=== PATIENT | female | born 1935 | race Caucasian/White ===

== ENCOUNTER 2017-03-21 10:27 | Emergency (ER) | payer MEDICARE, MEDICAID ==
--- NOTE | 2017-03-21 10:43 | ER Document Report ---
ED General - General Chief Complaint: Altered Mental Status Stated Complaint: ALTERED MENTAL STATUS Time Seen by Provider: 03/21/17 10:34 Notes: Is an 82-year-old female, past medical history dementia, prior CVAs, multiple UTIs, aortic aneurysm, from [facility] after she was difficult to arouse this morning. Her daughter is at bedside and said that she was interactive and talkative last night. No new medications were started and the patient does not have narcotics listed on her med list. TRAVEL OUTSIDE OF THE [place] IN LAST 30 DAYS: No - Related Data Allergies/Adverse Reactions: No Known Allergies Allergy (Verified 11/18/15 18:30) Past Medical History - General Information source: Relative - Daughter - Social History Smoking Status: Former Smoker Family History: Reviewed & Not Pertinent - Past Medical History Cardiac Medical History: Reports: Hx Hypertension Endocrine Medical History: Reports: Hx Diabetes Mellitus Type 1 - Immunizations Hx Diphtheria, Pertussis, Tetanus Vaccination: No Review of Systems - Review of Systems -: Yes ROS unobtainable due to patient's medical condition Physical Exam - Vital signs Vitals: Resp Pulse Ox 13 95 03/21/17 10:33 03/21/17 10:33 - Notes Notes: PHYSICAL EXAMINATION: GENERAL: Frail appearing. Alert and responds to voice. Does not open eyes. HEAD: Atraumatic, normocephalic. EYES: Pupils equal round and reactive to light, extraocular movements intact, sclera anicteric, conjunctiva are normal. ENT: nares patent, oropharynx clear without exudates. Moist mucous membranes. NECK: Normal range of motion, supple without lymphadenopathy LUNGS: Breath sounds clear to auscultation bilaterally and equal. No wheezes rales or rhonchi. HEART: Regular rate and rhythm without murmurs ABDOMEN: Soft, nontender, normoactive bowel sounds. No guarding, no rebound. No masses appreciated. EXTREMITIES: Normal range of motion, no pitting or edema. No cyanosis. NEUROLOGICAL: Squeezes hands when asked, will not open eyes, unable to test sensory SKIN: Warm, Dry, normal turgor, no rashes or lesions noted. Course - Re-evaluation Re-evalutation: 03/21/17 14:28 Pt is wide awake her mental status is back to baseline per her daughter at bedside. She has evidence of a UTI on her urinalysis. Looking through past sensitivities, her bacteria is sensitive to Macrobid. No evidence of sepsis. Will discharge to [place] with strict return precautions - Vital Signs Vital signs: Temp Pulse Resp BP Pulse Ox 14 126/77 H 96 03/21/17 11:01 03/21/17 11:01 03/21/17 11:01 - Laboratory Result Diagrams: 03/21/17 10:40 03/21/17 10:40 Laboratory results interpreted by me: 03/21/17 03/21/17 03/21/17 10:31 10:40 10:40 RDW 15.0 H Sodium 147.7 H Potassium 3.3 L Chloride 108 H Carbon Dioxide 31 H BUN 23 H Glucose 113 H POC Glucose 112 H Albumin 3.4 L Urine Protein Urine Nitrite Ur Leukocyte Esterase Urine Ascorbic Acid 03/21/17 12:41 RDW Sodium Potassium Chloride Carbon Dioxide BUN Glucose POC Glucose Albumin Urine Protein 30 H Urine Nitrite POSITIVE H Ur Leukocyte Esterase LARGE H Urine Ascorbic Acid 20 H Discharge - Discharge Clinical Impression: Urinary tract infection Qualifiers: Urinary tract infection type: acute cystitis Hematuria presence: without hematuria Qualified Code(s): N30.00 - Acute cystitis without hematuria Mental status change Qualifiers: Altered mental status type: transient alteration of awareness Qualified Code(s) : R40.4 - Transient alteration of awareness Condition: Stable Disposition: SNF Additional Instructions: URINARY TRACT INFECTION: Your evaluation indicates that you have a urinary tract infection. This is due to germs growing in the bladder. This is a common problem. This infection usually responds quickly to antibiotics. Your antibiotic should be taken exactly as prescribed. Drink plenty of fluids -- three to four quarts a day. Occasionally, a bladder anesthetic will be prescribed to help stop the feeling of urgency until the antibiotic has a chance to clear the infection. This may cause your urine to be dark orange. Certain urine infections require a culture. If the doctor obtained a culture, the results will be back in two days. You should call to see if a change in treatment is needed. A repeat urinalysis after you finish treatment is often recommended. The physician will let you know if further testing is required. Call the doctor if you develop fever, chills, flank pain, inability to urinate, or blood in the urine. ANTIBIOTIC THERAPY: You have been given an antibiotic prescription. It's important that you take all the medication, unless instructed otherwise by your physician. Failure to complete the entire course can result in relapse of your condition. Common side effects of antibiotics include nausea, intestinal cramping, or diarrhea. Women may develop vaginal yeast infections, and babies can get yeast (thrush) in the mouth following the use of antibiotics. Contact your physician if you develop significant side effects from this medication. Allergy to this antibiotic can result in hives, wheezing, faintness, or itching. If symptoms of allergy occur, stop the medication and call the doctor. NITROFURANTOIN (MACRODANTIN, MACROBID): You have received a prescription for nitrofurantoin (Macrodantin). This antibiotic is used for urinary tract infections. Women who are or nursing should notify the physician before taking this medicine. If you have ever had a problem caused by this medication in the past, be sure the physician is aware of it. Common side effects of this medicine include nausea, vomiting, or decreased appetite. Notify your physician if these side effects become severe. Immediately stop this medicine and call the physician if you develop cough , shortness of breath, chest pain, weakness, jaundice (yellow color of the skin and whites of the eyes), or a skin rash. FOLLOW-UP CARE: If you have been referred to a physician for follow-up care, call the physician s office for an appointment as you were instructed or within the next two days. If you experience worsening or a significant change in your symptoms, notify the physician immediately or return to the Emergency Department at any time for re-evaluation. Prescriptions: Nitrofurantoin/Nitrofuran Mac [Macrobid 100 mg Capsule] 1 tab PO BID #10 capsule Referrals: RACHEL HIGGINS MD [Primary Care Provider] - Follow up as needed
[2017-03-21 11:10] LABS: ABSOLUTE EOSINOPHILS # (AUTO) 0.2 10^3/uL (0.0-0.6); ABSOLUTE LYMPHOCYTES (AUTO) 1.8 10^3/uL (0.5-4.7); ABSOLUTE MONOCYTES (AUTO) 0.4 10^3/uL (0.1-1.4); ABSOLUTE NEUT (AUTO) 3.6 10^3/uL (1.7-8.2); BASOPHILS % (AUTO) 0.6 % (0-2); EOSINOPHILS % (AUTO) 2.9 % (0-6); HEMATOCRIT 38.2 % (36.0-47.0); HEMOGLOBIN 12.3 g/dL (12.0-15.5); HGB HCT DIFFERENCE -1.3; LYMPHOCYTES % (AUTO) 29.3 % (13-45); MEAN CORPUSCULAR HEMOGLOBIN 30.1 pg (27.0-33.4); MEAN CORPUSCULAR HGB CONC 32.4 g/dL (32.0-36.0); MEAN CORPUSCULAR VOLUME 93 fl (80-97); MONOCYTES % (AUTO) 6.5 % (3-13); SEGMENTED NEUTROPHILS % (AUTO) 60.7 % (42-78)
[2017-03-21 11:20] LABS: ALANINE AMINOTRANSFERASE 23 U/L (9-52); ALBUMIN 3.4 g/dL (3.5-5.0); ALKALINE PHOSPHATASE 81 U/L (38-126); ANION GAP 9 (5-19); ASPARTATE AMINO TRANSFERASE 28 U/L (14-36); BILIRUBIN,DIRECT 0.3 mg/dL (0.0-0.4); BILIRUBIN,TOTAL 0.5 mg/dL (0.2-1.3); BLOOD UREA NITROGEN 23 mg/dL (7-20); CALCIUM 8.7 mg/dL (8.4-10.2); CARBON DIOXIDE 31 mmol/L (22-30); CHLORIDE 108 mmol/L (98-107); CREATINE KINASE 31 U/L (30-135); CREATININE RESULT 0.59 mg/dL (0.52-1.25); GLUCOSE 113 mg/dL (75-110); LIPASE 32.8 U/L (23-300); POTASSIUM 3.3 mmol/L (3.6-5.0); SODIUM 147.7 mmol/L (137-145); TOTAL PROTEIN 7.6 g/dL (6.3-8.2)
[2017-03-21 11:22] LABS: ALCOHOL < 10 mg/dL (NONE DETECTED)
--- NOTE | 2017-03-21 11:32 | RADIOLOGY REPORT (SQ) ---
EXAM DESCRIPTION: CT HEAD WITHOUT COMPLETED DATE/TIME: 03/21/2017 11:21 am REASON FOR STUDY: AMS COMPARISON: 11/21/2015 TECHNIQUE: Axial images acquired through the brain without intravenous contrast. Images reviewed wi th bone, brain and subdural windows. Images stored on PACS. All CT scanners at this facility use dose modulation, iterative reconstruction, and/or weight based d osing when appropriate to reduce radiation dose to as low as reasonably achievable (ALARA). [facility]: Dose Right [facility]: CareDose [facility]: Dose Right [facility]: Teradose 4D [facility]: [employer] RADIATION DOSE: 64.61mGy. LIMITATIONS: None. FINDINGS: VENTRICLES: Prominent. CEREBRUM: No masses. No hemorrhage. No midline shift. Areas of low density in the white matter mos t likely due to chronic micro-vascular ischemic change. No evidence for acute infarction. CEREBELLUM: No masses. No hemorrhage. No alteration of density. No evidence for acute infarction. EXTRAAXIAL SPACES: Age-related involutional change. No fluid collections. No masses. ORBITS AND GLOBE: No intra- or extraconal masses. Normal contour of globe without masses. CALVARIUM: No fracture. PARANASAL SINUSES: Fluid left sphenoid, right ethmoid and maxillary sinuses. SOFT TISSUES: No mass or hematoma. OTHER: No other significant finding. IMPRESSION: CHRONIC CHANGES OF ATROPHY AND MICROVASCULAR ISCHEMIA. NO ACUTE PROCESS. TECHNICAL DOCUMENTATION: JOB ID: [id number] Quality ID # [id number]: Final reports with documentation of one or more dose reduction techniques (e.g., Au tomated exposure control, adjustment of the mA and/or kV according to patient size, use of iterative reconstruction technique) 2010 [employer]- All Rights Reserved
--- NOTE | 2017-03-21 11:48 | RADIOLOGY REPORT (SQ) ---
EXAM DESCRIPTION: CHEST SINGLE VIEW COMPLETED DATE/TIME: 03/21/2017 11:23 am REASON FOR STUDY: AMS COMPARISON: None. EXAM PARAMETERS: NUMBER OF VIEWS: One view. TECHNIQUE: Single frontal radiographic view of the chest acquired. RADIATION DOSE: NA LIMITATIONS: None. FINDINGS: LUNGS AND PLEURA: No opacities, masses or pneumothorax. No pleural effusion. MEDIASTINUM AND HILAR STRUCTURES: No masses. Contour normal. HEART AND VASCULAR STRUCTURES: Heart normal in size. Normal vasculature. BONES: No acute findings. HARDWARE: None in the chest. OTHER: No other significant finding. IMPRESSION: NO ACUTE RADIOGRAPHIC FINDING IN THE CHEST. TECHNICAL DOCUMENTATION: JOB ID: [id number]
[2017-03-21] MEDS ORDERED: POTASSIUM CHLORIDE 10 MEQ TABLET.SA PO ONE (12:33)
[2017-03-21 13:27] LABS: URINE BARBITURATES SCREEN NEGATIVE; URINE METHADONE SCREEN NEGATIVE; URINE OPIATES LOW NEGATIVE; URINE PHENCYCLIDINE SCREEN NEGATIVE
[2017-03-21 13:32] LABS: APPEARANCE,URINE CLOUDY; BILIRUBIN,URINE NEGATIVE (NEGATIVE); GLUCOSE, URINE NEGATIVE (NEGATIVE); KETONES,URINE NEGATIVE (NEGATIVE); LEUKOCYTE ESTERASE,URINE LARGE (NEGATIVE); NITRITE,URINE POSITIVE (NEGATIVE); PROTEIN,URINE 30 mg/dL (NEGATIVE); URINE SPECIFIC GRAVITY 1.013; UROBILINOGEN,URINE NEGATIVE mg/dL (<2.0)
[2017-03-21 13:33] LABS: BACTERIA,URINE 3+ /HPF; RBC,URINE NONE SEEN /HPF; WBC,URINE TOO NUMEROUS TO CNT /HPF
[2017-03-21] MEDS ORDERED: CEFTRIAXONE 1 GM/D5W RTU 50 ML IV ONE (14:23)
[2017-03-21 16:36] VITALS: BP 124/95
--- NOTE | 2017-03-22 11:02 | EKG REPORT ---
SEVERITY:- ABNORMAL ECG - SINUS RHYTHM LEFT AXIS DEVIATION LEFT VENTRICULAR HYPERTROPHY : Confirmed by: Shania Gan MD 22-Mar-2017 11:01:57
== END 2017-03-21 16:36 ==
LOC: ER 10:27
DX: N30.00 Acute cystitis without hematuria (principal); R40.4 Transient alteration of awareness; I10 Essential (primary) hypertension; E10.9 Type 1 diabetes mellitus without complications; Z86.73 Personal history of transient ischemic attack (TIA), and cerebral infarction without residual deficits; Z87.440 Personal history of urinary (tract) infections
CPT/HCPCS: 93005; 99285; 51701; 96365; 36415; 82962; 80307 ×2; 82550; 83690; 85025; 80053; 81001; 84484; 83605; 71010; 70450; 93010; A9270; J0696

== ENCOUNTER 2018-03-13 13:14 | Emergency (ER) | payer MEDICARE, MEDICAID ==
--- NOTE | 2018-03-13 13:23 | ER Document Report ---
ED General - General Stated Complaint: STROKE LIKE SYMPTOMS Time Seen by Provider: 03/13/18 13:22 Notes: 83-year-old female patient referred to the emergency department for evaluation from a [facility] for altered mental status. Apparently she was more weak today than normal. half-way staff or concerned she may be having a stroke. Patient has dementia. Denies any complaints at this time. Is able to answer questions appropriately based on her baseline mental status. half-way staff states that she was weak on both upper extremities. Patient is able to move both upper extremities without difficulty with equal derrick follower strength and no obvious pronator drift on initial bedside exam immediately on arrival. TRAVEL OUTSIDE OF THE [place] IN LAST 30 DAYS: No - HPI Onset/Duration: Better Severity: None Pain Level: 0 - Related Data Allergies/Adverse Reactions: No Known Allergies Allergy (Verified 03/13/18 13:48) Past Medical History - General Information source: Patient, [facility] Records Cannot obtain history due to: Dementia - Social History Smoking Status: Smoker,Current Status Unk Smoking Education Provided: No Frequency of alcohol use: None Drug Abuse: None Lives with: Group Home Family History: Reviewed & Not Pertinent - Past Medical History Cardiac Medical History: Reports: Hx Hypertension Endocrine Medical History: Reports: Hx Diabetes Mellitus Type 1 - Immunizations Hx Diphtheria, Pertussis, Tetanus Vaccination: No Review of Systems - Review of Systems Constitutional: No symptoms reported EENT: No symptoms reported Cardiovascular: No symptoms reported Respiratory: No symptoms reported Gastrointestinal: No symptoms reported Genitourinary: No symptoms reported Female Genitourinary: No symptoms reported Musculoskeletal: No symptoms reported Skin: No symptoms reported Hematologic/Lymphatic: No symptoms reported Neurological/Psychological: No symptoms reported Physical Exam - Vital signs Vitals: Pulse Resp BP Pulse Ox 74 17 133/92 H 94 03/13/18 13:30 03/13/18 13:30 03/13/18 13:30 03/13/18 13:30 Interpretation: Normal - General General appearance: Appears well, Alert - HEENT Head: Normocephalic, Atraumatic Eyes: Normal Pupils: PERRL - Respiratory Respiratory status: No respiratory distress Chest status: Nontender Breath sounds: Normal Chest palpation: Normal - Cardiovascular Rhythm: Regular Heart sounds: Normal auscultation Murmur: No - Abdominal Inspection: Normal Distension: No distension Bowel sounds: Normal Tenderness: Nontender Organomegaly: No organomegaly - Back Back: Normal, Nontender - Extremities General upper extremity: Normal inspection, Nontender, Normal color, Normal ROM , Normal temperature General lower extremity: Normal inspection, Nontender, Normal color, Normal ROM , Normal temperature, Normal weight bearing. No: Royal's sign - Neurological Neuro grossly intact: Yes Cognition: Normal, Short term memory loss [place] Coma Scale Eye Opening: Spontaneous [place] Coma Scale Verbal: Oriented [place] Coma Scale Motor: Obeys Commands [place] Coma Scale Total: 15 Speech: Normal Cranial nerves: Normal Cerebellar coordination: Normal Motor strength normal: LUE, RUE, LLE, RLE Additional motor exam normals: Equal derrick follower. No: Involuntary movements, Pronator drift, Weakness, Hemiplegia Babinski reflex: Normal (flexor plantar) Sensory: Normal - Psychological Associated symptoms: Normal affect, Normal mood - Skin Skin Temperature: Warm Skin Moisture: Dry Skin Color: Normal Course - Re-evaluation Re-evalutation: 03/13/18 15:25 This is a relatively well-appearing 83-year-old female patient from a [facility] with dementia who does not appear to be having a stroke. Will order basic labs to make sure there is anything acutely wrong. I do not know what the [facility] staff Junito but I am definitely not seeing evidence of a stroke. If everything checks out I am comfortable discharging 03/13/18 15:28 CT scan unremarkable with exception of some right maxillary sinus disease. Patient does not have a fever and does not have an elevated WBC count. Wondering if this is just a chronic finding. 03/13/18 15:29 This does appear to be more of a chronic maxillary sinus disease picture. Rather than starting this patient on long course of antibiotics increasing her risk of developing C. difficile colitis I would prefer that she follow-up with ENT. We will provide her with ENT follow-up information for an appropriate treatment plan for asymptomatic maxillary sinus disease. 03/13/18 15:33 Urine seems to be concerning for UTI. Will place patient on some Augmentin which would cover the sinus in the urine more than likely. We will culture the urine. Recommend close follow-up. - Vital Signs Vital signs: Temp Pulse Resp BP Pulse Ox 98.2 F 74 18 137/84 H 95 03/13/18 13:47 03/13/18 13:30 03/13/18 14:01 03/13/18 14:00 03/13/18 14:01 - Laboratory Result Diagrams: 03/13/18 14:10 03/13/18 14:10 Laboratory results interpreted by me: 03/13/18 03/13/18 03/13/18 14:10 14:10 14:24 Hgb 11.7 L Hct 34.9 L RDW 15.0 H Sodium 146.0 H Potassium 3.5 L Carbon Dioxide 32 H Creatinine 0.47 L Glucose 133 H Albumin 3.2 L Urine Protein 30 H Urine Urobilinogen 2.0 H Ur Leukocyte Esterase LARGE H Urine Ascorbic Acid 40 H Discharge - Discharge Clinical Impression: Right maxillary sinusitis, chronic Urinary tract infection Qualifiers: Urinary tract infection type: site unspecified Hematuria presence: without hematuria Qualified Code(s): N39.0 - Urinary tract infection, site not specified Condition: Good Disposition: SNF-Other Instructions: Urinary Tract Infection ([facility]), Sinusitis ([facility]) Prescriptions: Amox Tr/Potassium Clavulanate [Augmentin 875-125 Tablet] 1 tab PO BID 10 Days # 20 tablet Referrals: JOSE ALBERTO CASTANON MD [Primary Care Provider] - Follow up as needed
--- NOTE | 2018-03-13 14:14 | RADIOLOGY REPORT (SQ) ---
EXAM DESCRIPTION: CT HEAD WITHOUT COMPLETED DATE/TIME: 03/13/2018 2:00 pm REASON FOR STUDY: altered COMPARISON: 03/21/2017 TECHNIQUE: Axial images acquired through the brain without intravenous contrast. Images reviewed wi th bone, brain and subdural windows. Additional sagittal and coronal reconstructions were generated. Images stored on PACS. All CT scanners at this facility use dose modulation, iterative reconstruction, and/or weight based d osing when appropriate to reduce radiation dose to as low as reasonably achievable (ALARA). [facility]: Dose Right [facility]: CareDose [facility]: Dose Right [facility]: Teradose 4D [facility]: [employer] RADIATION DOSE: CT Rad equipment meets quality standard of care and radiation dose reduction techniq ues were employed. CTDIvol: 53.2 mGy. DLP: 964 mGy-cm. mGy. LIMITATIONS: None. FINDINGS: VENTRICLES: Prominent ventricles secondary to involutional atrophy. CEREBRUM: Cortical atrophy. No masses. No hemorrhage. No midline shift. No evidence for acute inf arction. Areas of low density in the white matter most likely chronic small vessel ischemic changes. CEREBELLUM: No masses. No hemorrhage. No alteration of density. No evidence for acute infarction. EXTRAAXIAL SPACES: No fluid collections. No masses. ORBITS AND GLOBE: No intra- or extraconal masses. Normal contour of globe without masses. CALVARIUM: No fracture. PARANASAL SINUSES: There is a mucous retention cyst in the right maxillary sinus. SOFT TISSUES: No mass or hematoma. OTHER: No other significant finding. IMPRESSION: 1. CHRONIC MICROVASCULAR ISCHEMIA. NO ACUTE IMAGING FINDINGS IN THE BRAIN. 2. RIGHT MAXILLARY SINUS DISEASE. EVIDENCE OF ACUTE STROKE: NO. COMMENT: Quality ID # [id number]: Final reports with documentation of one or more dose reduction techniques (e.g., Automated exposure control, adjustment of the mA and/or kV according to patient size, use of iterative reconstruction technique) TECHNICAL DOCUMENTATION: JOB ID: [id number] [employer]- All Rights Reserved Reading location - IP/workstation name: [email or web address]
[2018-03-13 14:25] LABS: ABSOLUTE BASOPHILS # (AUTO) 0.1 10^3/uL (0.0-0.2); ABSOLUTE EOSINOPHILS # (AUTO) 0.1 10^3/uL (0.0-0.6); ABSOLUTE LYMPHOCYTES (AUTO) 2.1 10^3/uL (0.5-4.7); ABSOLUTE MONOCYTES (AUTO) 0.6 10^3/uL (0.1-1.4); ABSOLUTE NEUT (AUTO) 4.7 10^3/uL (1.7-8.2); EOSINOPHILS % (AUTO) 1.2 % (0-6); HEMATOCRIT 34.9 % (36.0-47.0); HEMOGLOBIN 11.7 g/dL (12.0-15.5); LYMPHOCYTES % (AUTO) 27.6 % (13-45); MEAN CORPUSCULAR HEMOGLOBIN 28.6 pg (27.0-33.4); MEAN CORPUSCULAR HGB CONC 33.5 g/dL (32.0-36.0); MEAN CORPUSCULAR VOLUME 85 fl (80-97); MONOCYTES % (AUTO) 7.8 % (3-13); PLATELET COUNT 239 10^3/uL (150-450); RED BLOOD COUNT 4.09 10^6/uL (3.72-5.28); SEGMENTED NEUTROPHILS % (AUTO) 62.4 % (42-78); TOTAL CELLS COUNTED % (AUTO) 100 %; WHITE BLOOD COUNT 7.5 10^3/uL (4.0-10.5)
[2018-03-13 14:37] LABS: ALANINE AMINOTRANSFERASE 16 U/L (9-52); ALBUMIN 3.2 g/dL (3.5-5.0); ALKALINE PHOSPHATASE 95 U/L (38-126); ANION GAP 10 (5-19); ASPARTATE AMINO TRANSFERASE 22 U/L (14-36); BILIRUBIN,DIRECT 0.3 mg/dL (0.0-0.4); BILIRUBIN,TOTAL 0.4 mg/dL (0.2-1.3); BLOOD UREA NITROGEN 13 mg/dL (7-20); CARBON DIOXIDE 32 mmol/L (22-30); CHLORIDE 104 mmol/L (98-107); GLUCOSE 133 mg/dL (75-110); POTASSIUM 3.5 mmol/L (3.6-5.0); TOTAL PROTEIN 7.3 g/dL (6.3-8.2)
[2018-03-13 15:26] LABS: AMORPHOUS SEDIMENT,URINE TRACE /HPF; APPEARANCE,URINE CLOUDY; BILIRUBIN,URINE NEGATIVE (NEGATIVE); COLOR,URINE YELLOW; GLUCOSE, URINE NEGATIVE (NEGATIVE); KETONES,URINE NEGATIVE (NEGATIVE); LEUKOCYTE ESTERASE,URINE LARGE (NEGATIVE); NITRITE,URINE NEGATIVE (NEGATIVE); PROTEIN,URINE 30 mg/dL (NEGATIVE); URINE SPECIFIC GRAVITY 1.017
[2018-03-13] MEDS ORDERED: CEFTRIAXONE 1 GM/D5W RTU 1 GM/50 ML RTUPB IV ONE (15:34)
[2018-03-13 19:37] VITALS: BP 145/78
== END 2018-03-13 19:30 ==
LOC: ER 13:14
DX: N39.0 Urinary tract infection, site not specified (principal); J32.0 Chronic maxillary sinusitis; F03.90 Unspecified dementia, unspecified severity, without behavioral disturbance, psychotic disturbance, mood disturbance, and anxiety; I10 Essential (primary) hypertension; E10.9 Type 1 diabetes mellitus without complications
CPT/HCPCS: 99285; 51701; 96365; 36415; 87086; 85025; 87088; 80053; 81001; 87186; 70450; J0696

== ENCOUNTER 2018-07-22 05:11 | Inpatient (IN) | payer MEDICARE, MEDICAID ==
[2018-07-22] MEDS: NORMAL SALINE 1000 ML 1,000 ML IV PRN ×2 (05:15→06:17)
--- NOTE | 2018-07-22 05:23 | ER Document Report ---
ED General - General Chief Complaint: Decreased LOC Stated Complaint: SHORTNESS OF BREATH Time Seen by Provider: 07/22/18 05:18 Notes: Patient is an 83-year-old female who presents with septic shock. Patient apparently started being ill approximately 2 days ago. Per long term report patient had blood work and urine done and urine showed signs of infection. Antibiotic treatment not yet been started. Tonight the patient became more and more responsive and she had a temp of 103.7 rectally. She was given rectal suppository Tylenol and ambulance was called. Paramedics said when they arrived she had very faint pulses. She was unresponsive. They gave her a liter of fluid and started her on levophed. Blood pressure improved. Patient will now moan some but otherwise will not answer questions. Per report at baseline patient is usually awake and alert but demented. She is a DNR. Primary care doctor is Dr. Castanon. TRAVEL OUTSIDE OF THE [place] IN LAST 30 DAYS: No - Related Data Allergies/Adverse Reactions: No Known Allergies Allergy (Verified 07/22/18 06:19) Past Medical History - Social History Smoking Status: Unknown if Ever Smoked Frequency of alcohol use: None Drug Abuse: None Family History: Reviewed & Not Pertinent - Past Medical History Cardiac Medical History: Reports: Hx Hypertension Endocrine Medical History: Reports: Hx Diabetes Mellitus Type 1 Renal/ Medical History: Denies: Hx Peritoneal Dialysis - Immunizations Hx Diphtheria, Pertussis, Tetanus Vaccination: No Review of Systems - Review of Systems -: Yes ROS unobtainable due to patient's medical condition - nonverbal due to illness Physical Exam - Vital signs Vitals: Resp Pulse Ox 29 H 93 07/22/18 05:14 07/22/18 05:14 - Notes Notes: General Appearance: Ill-appearing. Patient responds slightly to painful stimuli. She will moan. She does not respond to verbal stimuli. Vitals: reviewed, See vital signs table. Head: no swelling or tenderness to the head Eyes: PERRL, EOMI, Conjuctiva clear Mouth: No decreasd moisture Neck: Supple, no neck swelling Lungs: No wheezing, No rales, scattered rhonci, No accessory muscle use, good air exchange bilaterally. Heart: Normal rate, Regular rythm, No murmur, no rub Abdomen: Normal BS, soft, No rigidity, No abdominal tenderness, No guarding, no rebound, no abdominal masses, no organomegaly Extremities: No edema. Good distal pulses. Capillary refill is normal. Skin: warm, dry, appropriate color, no rash Neuro: Responds to painful stimuli. Does not respond to verbal stimuli. Does not follow commands and therefore full neuro exam is difficult to obtain. Course - Re-evaluation Re-evalutation: 07/22/18 05:23 Patient presents with septic shock. I will give her 1 more liter of fluid and see if we can wean her off the levophed. I will not intubate as the patient is 83 years old with dementia and is a DNR. Antibiotics will be started. Lab evaluation has been ordered. 07/22/18 06:05 Family is at bedside. They are very understanding of her current critical condition. They are aware that she very well could possibly from his infection. They do not want any type of invasive procedures such as central line or intubation. I agree with them and I think this is appropriate to not want these measures. Currently patient is on Levophed and they are okay with giving her Levophed and fluids. Currently plan is to continue to the patient's infections. If the patient's blood pressure continues to decrease despite being on Levophed the patient will be kept comfortable so that she is able to pass without agitation or pain. Once patient's chemistry panel has returned I will called Dr. Castanon for admission. Dictation of this chart was performed using voice recognition software; therefore, there may be some unintended grammatical errors. 07/22/18 06:11 On reevaluation patient has good peripheral pulses with good capillary refill. Mental status is still decreased. She is having some occasional moaning with some increased movement. 07/22/18 06:[address] Castanon who agreed agrees with admission of the patient. - Vital Signs Vital signs: Temp Pulse Resp BP Pulse Ox 20 106/55 L 98 07/22/18 06:16 07/22/18 06:16 07/22/18 06:16 - Laboratory Result Diagrams: 07/22/18 05:25 07/22/18 05:25 Laboratory results interpreted by me: 07/22/18 07/22/18 07/22/18 05:19 05:25 05:25 WBC 14.9 H MCHC 30.6 L RDW 18.6 H Plt Count 128 L Seg Neuts % (Manual) 87 H Lymphocytes % (Manual) 5 L Monocytes % (Manual) 2 L Abs Neuts (Manual) 13.7 H Sodium 170.9 H* Potassium 3.0 L* Chloride 135 H BUN 57 H Creatinine 1.95 H Est GFR ( Amer) 30 L Est GFR (Non-Af Amer) 24 L Glucose 203 H POC Glucose 189 H Lactic Acid Calcium 10.4 H Direct Bilirubin 0.6 H AST 52 H Total Protein 6.1 L Albumin 2.5 L 07/22/18 05:25 WBC MCHC RDW Plt Count Seg Neuts % (Manual) Lymphocytes % (Manual) Monocytes % (Manual) Abs Neuts (Manual) Sodium Potassium Chloride BUN Creatinine Est GFR ( Amer) Est GFR (Non-Af Amer) Glucose POC Glucose Lactic Acid 7.1 H Calcium Direct Bilirubin AST Total Protein Albumin - EKG Interpretation by Me Additional EKG results interpreted by me: 07/22/18 05:30 EKG is reviewed and interpreted by me. EKG shows sinus rhythm with a rate of [address] segment elevation or depression other than mild depression in lead V6 which is old in comparison to her previous EKG from March 21, 2017. OH interval, QRS duration, QTc intervals are within normal range. Critical Care Note - Critical Care Note Total time excluding time spent on procedures (mins): 40 Comments: Critical care time spent with this patient not including time spent on procedures approximately 40 minutes due to management of septic shock with hypotension. Discharge - Discharge Clinical Impression: Pneumonia Qualifiers: Pneumonia type: due to unspecified organism Laterality: bilateral Lung location : unspecified part of lung Qualified Code(s): J18.9 - Pneumonia, unspecified organism Sepsis Qualifiers: Sepsis type: sepsis due to unspecified organism Qualified Code(s): A41.9 - Sepsis, unspecified organism UTI (urinary tract infection) Qualifiers: Urinary tract infection type: site unspecified Hematuria presence: without hematuria Qualified Code(s): N39.0 - Urinary tract infection, site not specified Condition: Serious Disposition: ADMITTED INPATIENT Admitting Provider: Sabrina Unit Admitted: ICU Referrals: JOSE ALBERTO CASTANON MD [Primary Care Provider] - Follow up as needed
[2018-07-22] MEDS ORDERED: PIPERACILLIN/TAZOBACTAM 3.375 GM VIAL IV ONE (05:24)
[2018-07-22] MEDS ORDERED: VANCOMYCIN HCL INJ 1000 MG VIAL IV ONE (05:24)
[2018-07-22 05:44] LABS: MEAN CORPUSCULAR HEMOGLOBIN 27.2 pg (27.0-33.4); MEAN CORPUSCULAR HGB CONC 30.6 g/dL (32.0-36.0); MEAN CORPUSCULAR VOLUME 89 fl (80-97); PLATELET COUNT 128 10^3/uL (150-450); RED BLOOD COUNT 4.39 10^6/uL (3.72-5.28); RED CELL DISTRIBUTION WIDTH 18.6 % (11.5-14.0); WHITE BLOOD COUNT 14.9 10^3/uL (4.0-10.5)
--- NOTE | 2018-07-22 05:47 | RADIOLOGY REPORT (SQ) ---
CLINICAL HISTORY: fever COMPARISON: March 21, 2017. TECHNIQUE: XR CHEST 1 VIEW 07/22/2018 5:18 AM CDT FINDINGS: Cardiac silhouette is normal in size. There are consolidations throughout the mid and lower left lung as well as the right lung base. There are probable small pleural effusions. There is no pneumothorax. There are no acute osseous findings. IMPRESSION: Bilateral pneumonia.
[2018-07-22 05:57] LABS: ALANINE AMINOTRANSFERASE 21 U/L (9-52); ALBUMIN 2.5 g/dL (3.5-5.0); ALKALINE PHOSPHATASE 81 U/L (38-126); ANION GAP 11 (5-19); ASPARTATE AMINO TRANSFERASE 52 U/L (14-36); BILIRUBIN,DIRECT 0.6 mg/dL (0.0-0.4); BILIRUBIN,TOTAL 0.9 mg/dL (0.2-1.3); BLOOD UREA NITROGEN 57 mg/dL (7-20); CALCIUM 10.4 mg/dL (8.4-10.2); CARBON DIOXIDE 25 mmol/L (22-30); CHLORIDE 135 mmol/L (98-107); GLUCOSE 203 mg/dL (75-110); TOTAL PROTEIN 6.1 g/dL (6.3-8.2)
[2018-07-22 06:02] LABS: VENOUS BLOOD HCO3 20.3 mmol/L (20-32); VENOUS BLOOD PH 7.35 (7.30-7.42)
[2018-07-22 06:03] LABS: ABSOLUTE LYMPHOCYTES# (MANUAL) 0.7 10^3/uL (0.5-4.7); ABSOLUTE MONOCYTES # (MANUAL) 0.3 10^3/uL (0.1-1.4); ABSOLUTE NEUTROPHILS# (MANUAL) 13.7 10^3/uL (1.7-8.2); ANISOCYTOSIS 2+; BAND NEUTROPHILS % (MANUAL) 5 % (3-5); BASOPHILS % (MANUAL) 1 % (0-2); EOSINOPHILS % (MANUAL) 0 % (0-6); LYMPHOCYTES % (MANUAL) 5 % (13-45); MONOCYTES % (MANUAL) 2 % (3-13); NUCLEATED RED BLOOD CELLS 2 /100 WBC (0); OVALOCYTES SLIGHT; PLATELET COMMENT DECREASED; POIKILOCYTOSIS SLIGHT; SEGMENTED NEUTROPHILS % (MAN) 87 % (42-78); TOTAL CELLS COUNTED 100
[2018-07-22 06:25] LABS: SODIUM 170.9 mmol/L (137-145)
[2018-07-22] MEDS ORDERED: DEXTROSE 5%-WATER 250 ML with NOREPINEPHRINE BITARTRATE 4 MG IV PRN ×2 (06:25)
[2018-07-22] MEDS ORDERED: RINGERS SOLUTION,LACTATED 1,000 ML IV ONE (06:38)
[2018-07-22] MEDS ORDERED: NOREPINEPHRINE BITARTRATE INJ/PF 4 MG/4 ML SDV IV ONE (06:47)
[2018-07-22] MEDS: POTASSI CL 20 MEQ/50 ML RIDER 20 MEQ/50 ML RTUPB IV SCH ×2 (07:02→11:03)
[2018-07-22] MEDS ORDERED: NORMAL SALINE 1000 ML 1,000 ML IV PRN (07:37)
[2018-07-22] MEDS ORDERED: VANCOMYCIN HCL 0 MG in DEXTROSE 5%-WATER 250 ML IV NR (07:45)
--- NOTE | 2018-07-22 08:15 | EKG REPORT ---
SEVERITY:- ABNORMAL ECG - SINUS RHYTHM INFERIOR INFARCT, AGE INDETERMINATE BORDERLINE R WAVE PROGRESSION, ANTERIOR LEADS NONSPECIFIC T ABNORMALITIES, ANT-LAT LEADS : Confirmed by: Shania Gan MD 22-Jul-2018 08:14:57
[2018-07-22 08:55] LABS: CREATINE KINASE MB 2.24 ng/mL (<4.55)
[2018-07-22 08:58] LABS: TROPONIN I 0.902 ng/mL
[2018-07-22 09:25] LABS: ARTERIAL BLOOD BASE EXCESS -0.3 mmol/L; ARTERIAL BLOOD H2CO3 1.63 mmol/L (1.05-1.35); ARTERIAL BLOOD HCO3 26.6 mmol/L (20-24); ARTERIAL BLOOD O2 SATURATION 95.4 % (94-98); ARTERIAL BLOOD PCO2 54.1 mmHg (35-45); ARTERIAL BLOOD PH 7.31 (7.35-7.45); ARTERIAL BLOOD PO2 85.2 mmHg (80-100); ARTERIAL BLOOD TOTAL CO2 28.2 mmol/L (21-25)
[2018-07-22 09:26] LABS: ARTERIAL BLOOD FIO2 4L
[2018-07-22 09:36] LABS: BILIRUBIN,URINE NEGATIVE (NEGATIVE); COLOR,URINE YELLOW; GLUCOSE, URINE NEGATIVE (NEGATIVE); KETONES,URINE NEGATIVE (NEGATIVE); LEUKOCYTE ESTERASE,URINE LARGE (NEGATIVE); NITRITE,URINE NEGATIVE (NEGATIVE); PROTEIN,URINE 100 mg/dL (NEGATIVE)
[2018-07-22 09:37] LABS: APPEARANCE,URINE TURBID; URINE SPECIFIC GRAVITY 1.015
[2018-07-22] MEDS: PIPERACILLIN SODIUM/TAZOBACTAM 2.25 GM in NORMAL SALINE 50 ML IV SCH ×3 (10:55→20:10)
[2018-07-22] MEDS ORDERED: PIPERACILLIN SODIUM/TAZOBACTAM 3.375 GM in NORMAL SALINE 100 ML IV SCH (12:00)
[2018-07-22] MEDS ORDERED: DEXTROSE 50%-WATER SYRINGE 25 GM/50 ML DOSE IV PRN (13:23)
[2018-07-22] MEDS ORDERED: DEXTROSE 40% GEL 15 GM TUBE PO PRN (13:23)
[2018-07-22] MEDS ORDERED: GLUCAGON,HUMAN RECOMB 1 MG INJ IM PRN (13:23)
[2018-07-22] MEDS ORDERED: DEXTROSE 50%-WATER SYRINGE 12.5 GM/25 ML DOSE IV PRN (13:23)
[2018-07-22] MEDS ORDERED: DEXTROSE 40% GEL 15 GM TUBE X 2 PO PRN (13:23)
[2018-07-22 15:17] LABS: BLOOD UREA NITROGEN 54 mg/dL (7-20); CALCIUM 9.3 mg/dL (8.4-10.2); GLUCOSE 262 mg/dL (75-110); POTASSIUM 3.1 mmol/L (3.6-5.0)
[2018-07-22 15:22] LABS: ANION GAP 5 (5-19); CARBON DIOXIDE 28 mmol/L (22-30); CHLORIDE 131 mmol/L (98-107); SODIUM 164.3 mmol/L (137-145)
[2018-07-22] MEDS: HEPARIN SOD (PORCINE) 5,000 UNIT/ML 1 ML SYRINGE SUBCUT SCH ×2 (15:39→21:01)
[2018-07-22] MEDS: INSULIN LISPRO 100 UNIT/ML 3 ML VIAL SUBCUT SCH ×2 (17:14→23:54)
--- NOTE | 2018-07-22 21:01 | PDOC H&P ---
History of Present Illness Admission Date/PCP: 07/22/18 06:43 JOSE ALBERTO CASTANON MD History of Present Illness: AUDIE ALBRIGHT is a 83 year old female, She is a resident of the penit[facility]iary at [place], she was transferred from the penitentiary to the emergency room for evaluation of unresponsiveness, in the emergency room she was evaluated, and emergency room she was in septic shock, family did not want any aggressive intervention, in the emergency room she was started on Levophed because of the low blood pressure, she was also aggressively fluid resuscitated. The serum sodium was 170, potassium was 7 creatinine 1.95, because of the low blood pressure she was still fluid resuscitated with normal saline despite severe hypernatremia. There was severe lactic acidosis. Despite fluids resuscitation at 30ml per KG body weight and intravenous norepinephrine patient developed oliguric acute kidney injury due to ATN, prognosis extremely poor patient will need CVVHD in the setting of severe hypotension. I spoke to patient's daughter about prognosis. Chest x-ray showed bilateral pneumonia. Family is contemplating comfort care the daughter is waiting for her brother, she is presently DNR status Past Medical History Cardiac Medical History: Reports: Hypertension Endocrine Medical History: Reports: Diabetes Mellitus Type 1 Psychiatric Medical History: Reports: Dementia, Depression Social History Smoking Status: Never Smoker Frequency of Alcohol Use: None Hx Recreational Drug Use: No Hx Prescription Drug Abuse: No - Advance Directive Resuscitation Status: Do Not Resuscitate Family History Family History: Reviewed & Not Pertinent Parental Family History Reviewed: Yes Children Family History Reviewed: Yes Sibling(s) Family History Reviewed.: Yes Medication/Allergy Home Medications: Aspirin [Aspirin 325 mg Tablet] 325 mg PO DAILY 11/19/15 Escitalopram Oxalate [Lexapro 10 mg Tablet] 10 mg PO DAILY 11/19/15 Memantine HCl [Namenda 10 mg Tablet] 10 mg PO Q12 11/19/15 Pioglitazone HCl [Actos 15 mg Tablet] 15 mg PO DAILY 11/19/15 RX: Omeprazole 20 mg PO DAILY 11/19/15 Ciclopirox/Urea/Camph/Men/Euc [Ciclopirox 8% Treatment Kit] 1 applic TP QHS 07/01 Cyanocobalamin (Vitamin B-12) [Vitamin B-12] 1,000 mcg PO DAILY 07/22/18 Docusate Sodium [Colace 100 mg Capsule] 100 mg PO BID 07/22/18 Levothyroxine Sodium [Synthroid] 125 mcg PO Q6AM 07/22/18 Peg 400/Hypromellose/Glycerin [Visine Dry Eye Relief Drop] 1 drop OU BID Tolterodine Tartrate [Detrol La] 4 mg PO DAILY 07/22/18 Allergies/Adverse Reactions: No Known Allergies Allergy (Verified 07/22/18 06:19) Review of Systems ROS unobtainable: Due to mental status Physical Exam Vital Signs: Temp Pulse Resp BP Pulse Ox 96.8 F L 55 L 15 103/50 L 96 07/22/18 19:43 07/22/18 19:56 07/22/18 18:28 07/22/18 18:28 07/22/18 18:28 Intake & Output 07/21/18 07/22/18 07/23/18 06:59 06:59 06:59 Intake Total 2379 Output Total 45 Balance 2334 Weight 56.2 kg General appearance: PRESENT: other - Patient is unresponsive Respiratory exam: PRESENT: decreased breath sounds Cardiovascular exam: PRESENT: +S1, +S2 GI/Abdominal exam: PRESENT: soft Neurological exam: PRESENT: altered Results Laboratory Results: 07/22/18 14:44 07/22/18 07/22/18 07/22/18 08:55 09:11 09:51 Carbonic Acid 1.63 H HCO3/H2CO3 Ratio 16:1 ABG pH 7.31 L ABG pCO2 54.1 H ABG pO2 85.2 ABG HCO3 26.6 H ABG O2 Saturation 95.4 ABG Base Excess -0.3 FiO2 4L Sodium Potassium Chloride Carbon Dioxide Anion Gap BUN Creatinine Est GFR ( Amer) Est GFR (Non-Af Amer) Glucose Lactic Acid 2.8 H Calcium Urine Color YELLOW Urine Appearance TURBID Urine pH 5.0 Ur Specific [place] 1.015 Urine Protein 100 H Urine Glucose (UA) NEGATIVE Urine Ketones NEGATIVE Urine Blood SMALL H Urine Nitrite NEGATIVE Ur Leukocyte Esterase LARGE H Urine WBC (Auto) >182 Urine RBC (Auto) 16 07/22/18 14:44 Carbonic Acid HCO3/H2CO3 Ratio ABG pH ABG pCO2 ABG pO2 ABG HCO3 ABG O2 Saturation ABG Base Excess FiO2 Sodium 164.3 H Potassium 3.1 L Chloride 131 H Carbon Dioxide 28 Anion Gap 5 BUN 54 H Creatinine 1.77 H Est GFR ( Amer) 33 L Est GFR (Non-Af Amer) 27 L Glucose 262 H Lactic Acid Calcium 9.3 Urine Color Urine Appearance Urine pH Ur Specific [place] Urine Protein Urine Glucose (UA) Urine Ketones Urine Blood Urine Nitrite Ur Leukocyte Esterase Urine WBC (Auto) Urine RBC (Auto) 07/22/18 07/22/18 08:09 08:09 Creatine Kinase 27 L CK-MB (CK-2) 2.24 Troponin I 0.902 Impressions: Chest X-Ray 07/22/18 05:18 IMPRESSION: Bilateral pneumonia. Assessment & Plan - Diagnosis (1) Septic shock Is this a current diagnosis for this admission?: Yes Plan: Patient with septic shock, presently on intravenous norepinephrine fluid therapy (2) Acute kidney injury Is this a current diagnosis for this admission?: Yes Plan: She needs CVVHD, she has oliguric acute kidney injury she has very poor prognosis without CVVHD, family does not want any aggressive intervention (3) Acute tubular necrosis Is this a current diagnosis for this admission?: Yes (4) Bilateral pneumonia Qualifiers: Pneumonia type: due to unspecified organism Lung location: unspecified part of lung Qualified Code(s): J18.9 - Pneumonia, unspecified organism Is this a current diagnosis for this admission?: Yes Plan: Start vancomycin and Zosyn (5) Hypernatremia Is this a current diagnosis for this admission?: Yes Plan: Though patient have severe hypernatremia, normal saline is still the full of choice because of the severe low blood pressure with hemodynamic instability (6) Dementia Qualifiers: Dementia type: unspecified type Dementia behavioral disturbance: without behavioral disturbance Qualified Code(s): F03.90 - Unspecified dementia without behavioral disturbance Is this a current diagnosis for this admission?: Yes (7) Sepsis with multiple organ dysfunction (MOD) Is this a current diagnosis for this admission?: Yes Plan: There are multiple organ failure including encephalopathy, acute kidney injury, acute respiratory failure
[2018-07-22] MEDS: DEXTROSE 5%-WATER 250 ML with NOREPINEPHRINE BITARTRATE 4 MG IV PRN ×2 (23:13)
[2018-07-23] MEDS: PIPERACILLIN SODIUM/TAZOBACTAM 2.25 GM in NORMAL SALINE 50 ML IV SCH ×3 (02:47→15:27)
[2018-07-23 04:16] LABS: ABSOLUTE LYMPHOCYTES (AUTO) 1.5 10^3/uL (0.5-4.7); ABSOLUTE MONOCYTES (AUTO) 0.4 10^3/uL (0.1-1.4); BASOPHILS % (AUTO) 0.4 % (0-2); EOSINOPHILS % (AUTO) 0.1 % (0-6); HEMATOCRIT 35.2 % (36.0-47.0); HEMOGLOBIN 11.3 g/dL (12.0-15.5); LYMPHOCYTES % (AUTO) 12.6 % (13-45); MEAN CORPUSCULAR HEMOGLOBIN 27.8 pg (27.0-33.4); MEAN CORPUSCULAR HGB CONC 32.2 g/dL (32.0-36.0); MEAN CORPUSCULAR VOLUME 86 fl (80-97); MONOCYTES % (AUTO) 3.5 % (3-13); PLATELET COUNT 103 10^3/uL (150-450); RED BLOOD COUNT 4.08 10^6/uL (3.72-5.28); RED CELL DISTRIBUTION WIDTH 17.6 % (11.5-14.0); SEGMENTED NEUTROPHILS % (AUTO) 83.4 % (42-78); TOTAL CELLS COUNTED % (AUTO) 100 %; WHITE BLOOD COUNT 11.9 10^3/uL (4.0-10.5)
[2018-07-23 04:37] LABS: ALANINE AMINOTRANSFERASE 113 U/L (9-52); ALBUMIN 2.2 g/dL (3.5-5.0); ALKALINE PHOSPHATASE 75 U/L (38-126); ANION GAP 7 (5-19); ASPARTATE AMINO TRANSFERASE 147 U/L (14-36); BILIRUBIN,DIRECT 0.3 mg/dL (0.0-0.4); BILIRUBIN,TOTAL 0.7 mg/dL (0.2-1.3); BLOOD UREA NITROGEN 60 mg/dL (7-20); CALCIUM 9.6 mg/dL (8.4-10.2); CARBON DIOXIDE 25 mmol/L (22-30); CHLORIDE 133 mmol/L (98-107); GLUCOSE 118 mg/dL (75-110); PHOSPHORUS 2.5 mg/dL (2.5-4.5); SODIUM 165.1 mmol/L (137-145); TOTAL PROTEIN 5.6 g/dL (6.3-8.2)
[2018-07-23 04:38] LABS: POTASSIUM 2.7 mmol/L (3.6-5.0)
[2018-07-23] MEDS ORDERED: POTASSI CL 20 MEQ/50 ML RIDER 20 MEQ/50 ML RTUPB IV ONE (05:05)
[2018-07-23] MEDS ORDERED: PHENTOLAMINE MESYLATE INJ 5 MG VIAL INFIL PRN (05:56)
[2018-07-23] MEDS ORDERED: PHENTOLAMINE MESYLATE INJ 5 MG VIAL ONE (06:18)
[2018-07-23] MEDS: HEPARIN SOD (PORCINE) 5,000 UNIT/ML 1 ML SYRINGE SUBCUT SCH ×2 (06:25→14:32)
[2018-07-23] MEDS: INSULIN LISPRO 100 UNIT/ML 3 ML VIAL SUBCUT SCH ×3 (06:26→18:17)
[2018-07-23] MEDS: POTASSIUM CHLORIDE 20 MEQ/50 ML RTU IV SCH ×4 (06:27→15:27)
--- NOTE | 2018-07-23 06:46 | RADIOLOGY REPORT (SQ) ---
Chest single view on 07/23/2018 at 6:28 AM CLINICAL INDICATION: Line placement COMPARISON: 07/22/2018 FINDINGS: New left-sided central venous catheter tip is in the SVC. There is no pneumothorax. Heart is within normal limits for size. Vascular calcification is noted in the aorta. There is a small right pleural effusion. There is worsening right lower lung opacity consistent with worsening atelectasis and/or pneumonia. There is stable left mid and lower lung opacity consistent with atelectasis and/or pneumonia. IMPRESSION: Worsening right lower lung atelectasis and/or pneumonia with otherwise no significant change.
--- NOTE | 2018-07-23 07:06 | OPERATIVE REPORT E ---
Operative Report NAME: AUDIE ALBRIGHT : 1935 AGE: 83Y DATE OF SURGERY: 07/23/2018 ROOM: 611 PREOPERATIVE DIAGNOSIS: Poor veins for IV access and needed pressors at the same time. POSTOPERATIVE DIAGNOSIS: Poor veins for IV access and needed pressors at the same time. PROCEDURE: Placement of left subclavian vein triple-lumen catheter. SURGEON: ESTRADA QUIGLEY M.D. ANESTHESIA: Local. INDICATION: This is an 83-year-old female noted to have poor peripheral veins for IV access and needed pressor medications. DESCRIPTION OF PROCEDURE: After adequate Trendelenburg position, the left upper chest and neck were then prepped and draped in the usual sterile fashion. Local anesthesia infiltrated at the left infraclavicular area. The left subclavian vein was then punctured and guidewire passed through the needle towards the area of superior vena cava. The needle was removed and the incision site dilated. A triple-lumen catheter was then inserted through the guidewire to a distance of about 16 cm. The 3 ports easily aspirated blood and instilled saline easily also. Catheter was then anchored to the skin with 3-0 silk and a Biopatch placed at the insertion site. Transparent dressing was then placed over the Biopatch and catheter. A chest x-ray will be obtained for placement. DICTATING PHYSICIAN: ESTRADA QUIGLEY M.D. [id number] PHY#: [id number] ID: [id number] JOB#: [id number] ACCT: [id number] cc:ESTRADA QUIGLEY M.D. >
[2018-07-23] MEDS: DEXTROSE 5%-WATER 250 ML with NOREPINEPHRINE BITARTRATE 4 MG IV PRN ×4 (08:59→18:48)
[2018-07-23] MEDS ORDERED: MORPHINE SULFATE 10 MG/ML INJ IV PRN (15:47)
--- NOTE | 2018-07-23 18:57 | PDOC PROGRESS REPORT ---
Subjective Progress Note for:: 07/23/18 Subjective:: Patient remained poorly responsive family by the bedside no decision yet on comfort care, urine output still minimal Reason For Visit: PNEUMONIA, SEPTIC SHOCK Physical Exam Vital Signs: Temp Pulse Resp BP Pulse Ox 97.9 F 63 17 100/48 L 94 07/23/18 18:00 07/23/18 18:00 07/23/18 18:09 07/23/18 18:09 07/23/18 18:09 Intake & Output 07/22/18 07/23/18 07/24/18 06:59 06:59 06:59 Intake Total 2479 650 Output Total 160 460 Balance 2319 190 Weight 59.2 kg Eye exam: PRESENT: PERRLA Respiratory exam: PRESENT: clear to auscultation rojas Cardiovascular exam: PRESENT: +S1, +S2 GI/Abdominal exam: PRESENT: soft Neurological exam: PRESENT: altered Results Laboratory Results: 07/23/18 04:06 07/23/18 04:06 07/23/18 07/23/18 04:06 04:06 WBC 11.9 H RBC 4.08 Hgb 11.3 L Hct 35.2 L MCV 86 MCH 27.8 MCHC 32.2 RDW 17.6 H Plt Count 103 L Seg Neutrophils % 83.4 H Lymphocytes % 12.6 L Monocytes % 3.5 Eosinophils % 0.1 Basophils % 0.4 Absolute Neutrophils 10.0 H Absolute Lymphocytes 1.5 Absolute Monocytes 0.4 Absolute Eosinophils 0.0 Absolute Basophils 0.0 Sodium 165.1 H Potassium 2.7 L* Chloride 133 H Carbon Dioxide 25 Anion Gap 7 BUN 60 H Creatinine 2.08 H Est GFR ( Amer) 27 L Est GFR (Non-Af Amer) 23 L Glucose 118 H Calcium 9.6 Phosphorus 2.5 Magnesium 2.1 Total Bilirubin 0.7 AST 147 H ALT 113 H Alkaline Phosphatase 75 Total Protein 5.6 L Albumin 2.2 L 07/22/18 07/22/18 08:09 08:09 Creatine Kinase 27 L CK-MB (CK-2) 2.24 Troponin I 0.902 Impressions: Chest X-Ray 07/23/18 00:00 IMPRESSION: Worsening right lower lung atelectasis and/or pneumonia with otherwise no significant change. Assessment & Plan - Diagnosis (1) Septic shock Is this a current diagnosis for this admission?: Yes Plan: Continue IV norepinephrine (2) Acute kidney injury Is this a current diagnosis for this admission?: Yes (3) Acute tubular necrosis Is this a current diagnosis for this admission?: Yes (4) Bilateral pneumonia Qualifiers: Pneumonia type: due to unspecified organism Lung location: unspecified part of lung Qualified Code(s): J18.9 - Pneumonia, unspecified organism Is this a current diagnosis for this admission?: Yes (5) Hypernatremia Is this a current diagnosis for this admission?: Yes (6) Dementia Qualifiers: Dementia type: unspecified type Dementia behavioral disturbance: without behavioral disturbance Qualified Code(s): F03.90 - Unspecified dementia without behavioral disturbance Is this a current diagnosis for this admission?: Yes (7) Sepsis with multiple organ dysfunction (MOD) Is this a current diagnosis for this admission?: Yes - Plan Summary Plan Summary: Continue treatment, prognosis remains poor
[2018-07-23] MEDS: MORPHINE SULFATE 10 MG/ML INJ IV PRN (20:52)
[2018-07-23] MEDS: LORAZEPAM INJ 2 MG/1 ML VIAL IV PRN (20:53)
[2018-07-24] MEDS ORDERED: VANCOMYCIN HCL 750 MG in DEXTROSE 5%-WATER 250 ML IV SCH (06:00)
[2018-07-24] MEDS: LORAZEPAM INJ 2 MG/1 ML VIAL IV PRN (12:12)
--- NOTE | 2018-07-24 21:23 | PDOC PROGRESS REPORT ---
Subjective Progress Note for:: 07/24/18 Subjective:: Patient on comfort care Reason For Visit: PNEUMONIA, SEPTIC SHOCK Physical Exam Vital Signs: Temp Pulse Resp BP Pulse Ox 98.3 F 63 15 78/34 L 97 07/24/18 08:36 07/23/18 18:00 07/24/18 18:24 07/24/18 18:24 07/24/18 18:23 Intake & Output 07/23/18 07/24/18 07/25/18 06:59 06:59 06:59 Intake Total 2479 650 Output Total 160 935 75 Balance 2319 -285 -75 Weight 59.2 kg Eye exam: PRESENT: PERRLA Respiratory exam: PRESENT: decreased breath sounds Cardiovascular exam: PRESENT: +S1, +S2 Results Laboratory Results: 07/23/18 04:06 07/23/18 04:06 07/22/18 08:55 Catheterized Urine Urine Culture - Final Escherichia Coli 07/22/18 07/22/18 08:09 08:09 Creatine Kinase 27 L CK-MB (CK-2) 2.24 Troponin I 0.902 Impressions: Chest X-Ray 07/23/18 00:00 IMPRESSION: Worsening right lower lung atelectasis and/or pneumonia with otherwise no significant change. Assessment & Plan - Diagnosis (1) Septic shock Is this a current diagnosis for this admission?: Yes (2) Acute kidney injury Is this a current diagnosis for this admission?: Yes (3) Acute tubular necrosis Is this a current diagnosis for this admission?: Yes (4) Bilateral pneumonia Qualifiers: Pneumonia type: due to unspecified organism Lung location: unspecified part of lung Qualified Code(s): J18.9 - Pneumonia, unspecified organism Is this a current diagnosis for this admission?: Yes (5) Hypernatremia Is this a current diagnosis for this admission?: Yes (6) Dementia Qualifiers: Dementia type: unspecified type Dementia behavioral disturbance: without behavioral disturbance Qualified Code(s): F03.90 - Unspecified dementia without behavioral disturbance Is this a current diagnosis for this admission?: Yes (7) Sepsis with multiple organ dysfunction (MOD) Is this a current diagnosis for this admission?: Yes
[2018-07-25] MEDS: MORPHINE SULFATE 10 MG/ML INJ IV PRN (12:47)
--- NOTE | 2018-07-25 20:14 | PDOC PROGRESS REPORT ---
Subjective Progress Note for:: 07/25/18 Subjective:: Patient on comfort care Reason For Visit: PNEUMONIA, SEPTIC SHOCK Physical Exam Vital Signs: Temp Pulse Resp BP Pulse Ox 98.3 F 63 20 78/30 L 88 L 07/24/18 08:36 07/23/18 18:00 07/25/18 06:00 07/24/18 19:23 07/25/18 06:00 Intake & Output 07/24/18 07/25/18 07/26/18 06:59 06:59 06:59 Intake Total 650 Output Total 935 75 400 Balance -285 -75 -400 General appearance: PRESENT: no acute distress Results Laboratory Results: 07/23/18 04:06 07/23/18 04:06 07/22/18 07/22/18 08:09 08:09 Creatine Kinase 27 L CK-MB (CK-2) 2.24 Troponin I 0.902 Impressions: Chest X-Ray 07/23/18 00:00 IMPRESSION: Worsening right lower lung atelectasis and/or pneumonia with otherwise no significant change. Assessment & Plan - Diagnosis (1) Septic shock Is this a current diagnosis for this admission?: Yes (2) Acute kidney injury Is this a current diagnosis for this admission?: Yes (3) Acute tubular necrosis Is this a current diagnosis for this admission?: Yes (4) Bilateral pneumonia Qualifiers: Pneumonia type: due to unspecified organism Lung location: unspecified part of lung Qualified Code(s): J18.9 - Pneumonia, unspecified organism Is this a current diagnosis for this admission?: Yes (5) Hypernatremia Is this a current diagnosis for this admission?: Yes (6) Dementia Qualifiers: Dementia type: unspecified type Dementia behavioral disturbance: without behavioral disturbance Qualified Code(s): F03.90 - Unspecified dementia without behavioral disturbance Is this a current diagnosis for this admission?: Yes (7) Sepsis with multiple organ dysfunction (MOD) Is this a current diagnosis for this admission?: Yes
[2018-07-25] MEDS: LORAZEPAM INJ 2 MG/1 ML VIAL IV PRN (21:04)
--- NOTE | 2018-07-26 14:10 | PDOC PROGRESS REPORT ---
Subjective Progress Note for:: 07/26/18 Subjective:: Patient remain a DNR on comfort care presently. Family at bedside and fully aware of care plan. Reason For Visit: PNEUMONIA, SEPTIC SHOCK Physical Exam Vital Signs: Temp Pulse Resp BP Pulse Ox 98.7 F 63 20 106/56 L 88 L 07/25/18 23:00 07/23/18 18:00 07/25/18 06:00 07/25/18 23:00 07/25/18 06:00 Intake & Output 07/25/18 07/26/18 07/27/18 06:59 06:59 06:59 Output Total 75 550 Balance -75 -550 Weight 57.5 kg General appearance: PRESENT: no acute distress Respiratory exam: PRESENT: decreased breath sounds - at lung bases Cardiovascular exam: PRESENT: RRR, +S1, +S2 Vascular exam: ABSENT: pallor GI/Abdominal exam: PRESENT: normal bowel sounds, soft Extremities exam: ABSENT: pedal edema Neurological exam: PRESENT: altered Skin exam: PRESENT: dry, warm Results Laboratory Results: 07/23/18 04:06 07/23/18 04:06 07/22/18 07/22/18 08:09 08:09 Creatine Kinase 27 L CK-MB (CK-2) 2.24 Troponin I 0.902 Impressions: Chest X-Ray 07/23/18 00:00 IMPRESSION: Worsening right lower lung atelectasis and/or pneumonia with otherwise no significant change. Assessment & Plan - Diagnosis (1) Bilateral pneumonia Qualifiers: Pneumonia type: due to unspecified organism Lung location: unspecified part of lung Qualified Code(s): J18.9 - Pneumonia, unspecified organism Is this a current diagnosis for this admission?: Yes Plan: Currently on comfort care. (2) Sepsis with multiple organ dysfunction (MOD) Is this a current diagnosis for this admission?: Yes Plan: Currently on comfort care. (3) Dementia Qualifiers: Dementia type: unspecified type Dementia behavioral disturbance: without behavioral disturbance Qualified Code(s): F03.90 - Unspecified dementia without behavioral disturbance Is this a current diagnosis for this admission?: Yes Plan: Currently on comfort care. - Time Time Spent with patient: 15-24 minutes Medications reviewed and adjusted accordingly: Yes Anticipated discharge: Other Within: Other - Inpatient Certification Based on my medical assessment, after consideration of the patient's comorbidities, presenting symptoms, or acuity I expect that the services needed warrant INPATIENT care.: Yes I certify that my determination is in accordance with my understanding of Medicare's requirements for reasonable and necessary INPATIENT services [42 CFR 412.3e].: Yes Medical Necessity: Need Close Monitoring Due to Risk of Patient Decompensation, Need for Pain Control, Risk of Complication if Not Cared For in Hospital 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
--- NOTE | 2018-07-27 10:36 | PDOC PROGRESS REPORT ---
Subjective Progress Note for:: 07/27/18 Subjective:: Patient remain a DNR on comfort care presently. Family at bedside and fully aware of care plan. Persistently low blood pressure at this time. Reason For Visit: PNEUMONIA, SEPTIC SHOCK Physical Exam Vital Signs: Temp Pulse Resp BP Pulse Ox 98.7 F 63 20 106/56 L 88 L 07/25/18 23:00 07/23/18 18:00 07/25/18 06:00 07/25/18 23:00 07/25/18 06:00 Intake & Output 07/26/18 07/27/18 07/28/18 06:59 06:59 06:59 Intake Total 0 Output Total 550 50 Balance -550 -50 Weight 57.5 kg Physical Exam: General appearance: PRESENT: no acute distress Respiratory exam: PRESENT: decreased breath sounds - at lung bases Cardiovascular exam: PRESENT: RRR, +S1, +S2 GI/Abdominal exam: PRESENT: normal bowel sounds, soft Extremities exam: ABSENT: pedal edema Neurological exam: PRESENT: altered Skin exam: PRESENT: dry, warm Results Laboratory Results: 07/23/18 04:06 07/23/18 04:06 07/22/18 08:09 Blood Blood Culture - Final NO GROWTH IN 5 DAYS 07/22/18 07/22/18 08:09 08:09 Creatine Kinase 27 L CK-MB (CK-2) 2.24 Troponin I 0.902 Impressions: Chest X-Ray 07/23/18 00:00 IMPRESSION: Worsening right lower lung atelectasis and/or pneumonia with otherwise no significant change. Assessment & Plan - Diagnosis (1) Bilateral pneumonia Qualifiers: Pneumonia type: due to unspecified organism Lung location: unspecified part of lung Qualified Code(s): J18.9 - Pneumonia, unspecified organism Is this a current diagnosis for this admission?: Yes (2) Sepsis with multiple organ dysfunction (MOD) Is this a current diagnosis for this admission?: Yes (3) Dementia Qualifiers: Dementia type: unspecified type Dementia behavioral disturbance: without behavioral disturbance Qualified Code(s): F03.90 - Unspecified dementia without behavioral disturbance Is this a current diagnosis for this admission?: Yes - Time Time Spent with patient: 15-24 minutes Medications reviewed and adjusted accordingly: Yes Anticipated discharge: Other Within: Other - Inpatient Certification Based on my medical assessment, after consideration of the patient's comorbidities, presenting symptoms, or acuity I expect that the services needed warrant INPATIENT care.: Yes I certify that my determination is in accordance with my understanding of Medicare's requirements for reasonable and necessary INPATIENT services [42 CFR 412.3e].: Yes Medical Necessity: Need for Pain Control, Risk of Complication if Not Cared For in Hospital 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 Prognosis very poor.
[2018-07-27] MEDS: MORPHINE SULFATE 10 MG/ML INJ IV PRN (16:40)
[2018-07-27 20:23] VITALS: BP 68/32
--- NOTE | 2018-07-28 20:19 | Death Summary ---
Summary Date : 07/28/18 Time of :: 08:12 Autopsy: No Resuscitation Status: Comfort Measures Only - Final Diagnosis (1) Septic shock Is this a current diagnosis for this admission?: Yes (2) Acute kidney injury Is this a current diagnosis for this admission?: Yes (3) Acute tubular necrosis Is this a current diagnosis for this admission?: Yes (4) Bilateral pneumonia Is this a current diagnosis for this admission?: Yes (5) Hypernatremia Is this a current diagnosis for this admission?: Yes (6) Dementia Is this a current diagnosis for this admission?: Yes (7) Sepsis with multiple organ dysfunction (MOD) Is this a current diagnosis for this admission?: Yes Hospital Course:: Patient was transferred from the custodial to the emergency room for evaluation of unresponsiveness, she has underlining dementia, and emergency room she was evaluated she was found to be septic shock, she has bilateral pneumonia that was oliguric acute kidney injury. Family declined any aggressive intervention, no mechanical ventilation no CVVHD which was indicated because of low blood pressure with oliguric acute kidney injury. Prognosis was extremely poor from the outset she was treated with IV antibiotic IV fluid, vasopressors with norepinephrine. Family soon change status to comfort care measures and patient
== END 2018-07-28 08:05 | DRG 871 ==
LOC: ER 05:11 → EH 06:43 → ICU 09:29 → 4N 07-25 06:26
PROVIDERS: ADMIT Internal Medicine; ATTEND Internal Medicine
PROC: 02HV33Z Insertion of Infusion Device into Superior Vena Cava, Percutaneous Approach (ICD-10-PCS; principal; 2018-07-22)
DX: A41.9 Sepsis, unspecified organism (principal); R65.21 Severe sepsis with septic shock; N17.0 Acute kidney failure with tubular necrosis; J18.9 Pneumonia, unspecified organism; G93.41 Metabolic encephalopathy; J96.00 Acute respiratory failure, unspecified whether with hypoxia or hypercapnia; E87.0 Hyperosmolality and hypernatremia; N39.0 Urinary tract infection, site not specified; Z51.5 Encounter for palliative care; I87.2 Venous insufficiency (chronic) (peripheral); F03.90 Unspecified dementia, unspecified severity, without behavioral disturbance, psychotic disturbance, mood disturbance, and anxiety; Z66 Do not resuscitate; E10.9 Type 1 diabetes mellitus without complications; F32.9 Major depressive disorder, single episode, unspecified; I10 Essential (primary) hypertension; Z79.899 Other long term (current) drug therapy
CPT/HCPCS: 36415; 36600; 51702; 71045; 80048; 80053; 81001; 82550; 82553; 82803; 82962; 83036; 83605; 83735; 84100; 84484; 85025; 87040; 87086; 87088; 87186; 93005; 93010; 96365; 96366; 96368; 99291; C1751; J1644; J1815; J2060; J2270; J2543; J2760; J3370; J3480; J3490; J7030; J7060; J7120